=== PATIENT | female | born 2000 | race Caucasian/White ===

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

== ENCOUNTER 2022-05-18 16:21 | Emergency (ER) | payer OTHER ==
[~2022-05-18] VITALS: Ht 152.4 cm; Wt 70.3 kg
[2022-05-18] MEDS ORDERED: ONDANSETRON ODT 4 MG TAB.RAPDIS ONE (17:02)
[2022-05-18 17:08] LABS: HEMATOCRIT 38.5 % (31.2-41.9); MEAN CORPUSCULAR HEMOGLOBIN 27.7 uug (24.7-32.8); MEAN CORPUSCULAR VOLUME 82.7 fL (75.5-95.3); PLATELET COUNT (AUTO) 333 K/uL (179-408)
[2022-05-18] MEDS ORDERED: ONDANSETRON ODT 4 MG TAB.RAPDIS SL ONE (17:15)
[2022-05-18 17:16] LABS: CREATININE 0.8 mg/dL (0.6-1.3); POTASSIUM 4.1 mmol/L (3.5-5.1)
[2022-05-18 17:21] LABS: BILIRUBIN,TOTAL 0.3 mg/dL (0.2-1.0); TOTAL PROTEIN, SERUM 8.1 g/dL (6.4-8.2)
--- NOTE | 2022-05-18 18:17 | NUR ---
did P.O. trial, per . Pt kept down water but still has nausea. notified.
[2022-05-18] MEDS ORDERED: ONDA4TAB5 PO (18:45)
--- NOTE | 2022-05-18 19:27 | NUR ---
inserted IV 20g right AC
--- NOTE | 2022-05-18 19:30 | NUR ---
nursing assessment not done on dayshift, it is now completed .
--- NOTE | 2022-05-18 19:33 | NUR ---
Patient discharged to home in stable condition. Written and verbal after care instructions given. Patient verbalizes understanding of instructions. Stressed follow up or return to ER for worsening s/s. pt accompanied by her mother.
[2022-05-18 19:34] VITALS: BP 110/60
== END 2022-05-18 19:36 | disposition home or self-care (01) ==
LOC: ER 16:23
DX: R11.2 Nausea with vomiting, unspecified (principal); Z86.59 Personal history of other mental and behavioral disorders
CPT/HCPCS: 36415; 76856; 83690; 85025; A4663; Q0162